=== PATIENT | male | born 1955 | race Caucasian/White ===

== ENCOUNTER 2023-01-02 11:12 | Emergency (ER) | payer MEDICARE ==
[2023-01-02] MEDS ORDERED: HYDROcodone/Acetaminophen 5/325 mg Tablet ONE (13:57)
== END 2023-01-02 14:09 | disposition home or self-care (01) ==
LOC: BURERS 11:12
DX: S22.31XA Fracture of one rib, right side, initial encounter for closed fracture (principal); I10 Essential (primary) hypertension; F17.210 Nicotine dependence, cigarettes, uncomplicated; X58.XXXA Exposure to other specified factors, initial encounter
CPT/HCPCS: 71250